=== PATIENT | female | born 1975 | race American Indian/Alaskan Native ===

== ENCOUNTER 2019-09-13 09:26 | Day surgery (SDC) | payer BC, OTHER ==
--- NOTE | 2019-09-12 11:17 | Short Stay Summary ---
Short Stay Documentation Date of service: 09/13/19 - History H&P: obtained from office - Allergies and Medications Current Medications: Allergies codeine Allergy (Verified 06/11/15 22:27) Hives Home Medications Medication Instructions Recorded Confirmed Last Taken Type Ferrous Sulfate [Ferrous Sulfate 324 mg PO DAILY 09/07/19 09/07/19 Unknown History 324 MG] Active Medications Acetaminophen (Tylenol) 1,000 mg PO PREOP ONE Stop: 09/13/19 06:01 Celecoxib (Celebrex) 200 mg PO PREOP NR Gabapentin (Gabapentin) 300 mg PO PREOP NR Sodium Chloride (Nacl 0.9% 1000 Ml) 1,000 mls @ 75 mls/hr IV DIRECT MALISSA Cefazolin Sodium (Ancef/Sterile Water 2 Gm/20 Ml) 2 gm in 20 mls @ 80 mls/hr IV PREOP NR; Protocol - Physical exam General appearance: no acute distress Integumentary: other (small shoulder mass is unchanged) HEENT: Atraumatic Lungs: Normal air movement Neurological: Normal speech - Brief post op/procedure progress note Date of procedure: 09/13/19 (dictation:[id number]) Pre-op diagnosis: left shoulder soft tissue mass Post-op diagnosis: same Procedure: Excision of left shoulder soft tissue mass IVF 300cc EBL min Anesthesia: MAC Findings: 2x2x1.2cm soft lipomatous mass. surrounding tissue normal Surgeon: HALLE MYERS Estimated blood loss: minimal Pathology: list (soft tissue mass) Specimen disposition: to lab Condition: stable - Hospital course Hospital course: uneventful - Disposition Condition at discharge: Stable Disposition: [id number] TO HOME OR SELFCARE Short Stay Discharge Plan Activity: advance as tolerated Diet: regular Wound: open to air, keep clean and dry Special Instructions: no heavy lifting Additional Instructions: Post Operative Instructions Activity: no heavy lifting for next 1 week. May shower tomorrow. Pat dry the wound or wounds. Keep incision sites clean and dry After surgery, start with a light diet. Consider starting with liquids. If you do well, you can advance to a regular diet as you feel comfortable. Apply an ice pack to the wound or wounds for 10-20 minutes at a time. Do this at least 4-5 times a day. You can do it more if he would like. Pain Medication Schedule for the first 2 days after surgery: Gabapentin 300mg twice a day Celebrex (celecoxib) 200mg twice a day Tylenol 500mg four times a day (every 6 hours) After the first 2 days, then take alternating doses of ibuprofen and Tylenol as needed for pain. Take 600 mg of ibuprofen every 6 hours as needed. Take 500 mg of Tylenol every 6 hours as needed. You should alternate these 2 medicines. Make sure you take the ibuprofen with food. It is very important that you use the prescription narcotic pain medicine (hydrocodone) only for very severe pain. Do not take the narcotic medicine before you try using all the medications listed above. We will call you in a couple of days to see how youre doing. If you have any questions or concerns, always feel free to call the clinic ([phone]) at any time. Follow up with: PRIMARY [facility] [Referring] - 7 Days HALLE MYERS MD [Staff Physician] - 14 Days Prescriptions: Celecoxib [celeBREX] 200 mg PO BID #4 capsule Gabapentin 300 mg PO BID #4 capsule HYDROcodone/APAP 5-325 [[place] 5/325] 1 each PO Q6HR PRN #10 tablet PRN Reason: Pain , Severe (7-10)
[~2019-09-13 09:26] MED LIST: ACETAMINOPHEN 500 MG TAB PO ONE; BUPIVACAINE/PF (0.5%) 5 MG/1 ML 30 ML VIAL INFILTRATI ONE; CELECOXIB 200 MG CAP PO NR; GABAPENTIN 300 MG CAP PO NR; LACTATED RINGERS 1,000 ML IV SCH; LIDOCAINE (1%) 10 MG/1 ML VIAL 20 ML MDV INFILTRATI ONE; MIDAZOLAM 2 MG/2 ML INJ IV NR; SODIUM CHLORIDE 0.9% 1000 ML 1,000 ML IV SCH; SODIUM CHLORIDE 0.9% IRR 1,000 ML BOTTLE IR ONE; ceFAZolin/Water 2 GM/20 ML 2 GM/20 ML SYRINGE IV NR
--- NOTE | 2019-09-13 10:12 | Anesthesia Consultation ---
Anesthesia Consult and Med Hx Date of service: 09/13/19 - Airway Anesthetic Teeth Evaluation: Good (lower braces, no rubber bands) ROM Head & Neck: Adequate Mental/Hyoid Distance: Adequate Mallampati Class: Class II Intubation Access Assessment: Probably Good - Pulmonary Exam CTA: Yes - Cardiac Exam Cardiac Exam: RRR - Pre-Operative Health Status ASA Pre-Surgery Classification: ASA2 Proposed Anesthetic Plan: MAC - Pulmonary Hx Smoking: No Hx Respiratory Symptoms: No Hx Sleep Apnea: No (YULI PRE SCREEN LOW RISK) - Cardiovascular System Hx Hypertension: No (resolved after gastric bypass; off meds x10yrs) Hx Heart Attack/AMI: No Hx Percutaneous Transluminal Coronary Angioplasty (PTCA): No - Central Nervous System CVA: No - Gastrointestinal Hx Gastroesophageal Reflux Disease: No - Endocrine Hx Renal Disease: No Hx Liver Disease: No Hx Insulin Dependent Diabetes: No Hx Non-Insulin Dependent Diabetes: No Hx Thyroid Disease: No - Hematic Hx Anemia: Yes - Other Systems Hx Obesity: No (s/p gastric bypass ~20yrs ago) - Additional Comments Anesthesia Medical History Comments: No hx anesthetic complications.
[2019-09-13] MEDS ORDERED: fentaNYL 100 MCG/2 ML INJ IV PRN (10:14)
--- NOTE | 2019-09-13 10:14 | Anesthesia Day of Surgery ---
Anesthesia Day of Surgery - Day of Surgery Patient Examined: Yes Patient H&P Reviewed: Yes Patient is NPO: Yes
[2019-09-13] MEDS ORDERED: ACETAMINOPHEN 500 MG TAB ONE (10:34)
[2019-09-13] MEDS ORDERED: HYDROmorphone 1 MG/1 ML INJ ONE (10:47)
[2019-09-13] MEDS ORDERED: MIDAZOLAM 2 MG/2 ML INJ ONE (10:47)
[2019-09-13] MEDS ORDERED: propofoL 200 MG/20 ML VIAL IV ONE (10:48)
[2019-09-13] MEDS ORDERED: LIDOCAINE MPF (2%) 20 MG/1 ML VIAL 5 ML ONE (10:49)
[2019-09-13] MEDS ORDERED: BUPIVACAINE/PF (0.5%) 5 MG/1 ML 30 ML VIAL INFILTRATI ONE ×2 (10:51→11:45)
[2019-09-13] MEDS ORDERED: LIDOCAINE (1%) 10 MG/1 ML VIAL 20 ML MDV ONE (10:51)
[2019-09-13 11:10] LABS: Hematocrit 35.1 % (30.3-42.9); Hemoglobin 11.1 gm/dl (10.1-14.3)
[2019-09-13] MEDS ORDERED: SODIUM CHLORIDE 0.9% IRR 1,000 ML BOTTLE IR ONE (11:42)
[2019-09-13] MEDS ORDERED: LIDOCAINE (1%) 10 MG/1 ML VIAL 20 ML MDV INFILTRATI ONE (11:45)
[2019-09-13] MEDS: hydrALAZINE 20 MG/1 ML INJ IV PRN ×2 (12:39→12:49)
[2019-09-13 13:03] VITALS: BP 134/85
--- NOTE | 2019-09-13 13:29 | Operative Report ---
PREOPERATIVE DIAGNOSIS: Left shoulder soft tissue mass. POSTOPERATIVE DIAGNOSIS: Left shoulder soft tissue mass. PROCEDURE: Excision of left shoulder soft tissue mass. ATTENDING PHYSICIAN: Smooth Larios MD ANESTHESIA: Local MAC. INTRAVENOUS FLUIDS: 300 mL. BLOOD LOSS: Minimal. FINDINGS: Lipomatous mass that was 2 x 2 x 1.2 cm. There was no evidence of any abnormal tissue or structures in the periphery. Everything else looked normal. SPECIMENS: The above listed mass. DRAINS: None. COMPLICATIONS: None. DISPOSITION: Stable, transferred to Recovery Room. INDICATIONS: This is a 44-year-old female who reports that a few months ago she began having a lot of neck and shoulder pain during attempts at massage in that area. She identified a mass in the left shoulder. She believes that it has been contributing to the pain and has been growing. The patient is assessed to be in need for excision. Procedure, risks, benefits were explained to the patient. Risks include but were not limited to infection, bleeding, pain, injury to surrounding structures, possible need for further procedures in the future. Also emphasized that I think the pain that she is having in her neck and shoulders are muscular in origin. I do not believe that the mass that we are planning to remove will help relieve the pain. I want to make sure she understood that these are two separate things and not to have the expectation with a disappointment that she continues to have pain in her neck and shoulders despite the removal of the mass. The patient understood and consented. OPERATIVE NOTE: The patient was brought to the operating room and placed on the table in supine position. After adequate sedation was established, the patient was prepped and draped in usual sterile fashion. Pressure points had been padded. Folded-up sheath was placed underneath the left shoulder to elevate. SCDs were in place. Antibiotics have been given. Time-out was called. Identifying the lines of skin tension, I marked out. Along one of the lines, I was along the center of the mass. Local was injected just in that area, so that I would be able to clearly identify the mass underneath in case it was deep. Skin was sharply incised. Dissection was carried down to the mass. The mass was dissected out from the surrounding tissue. It appeared to be a lipomatous mass. I checked multiple times in the surrounding area to make sure there was nothing left. It appeared as though the mass that we had identified in the office and in the holding area was what I dissected out. I thought the fat tissue in the periphery was essentially normal, so I did not excise out any more than a small rim around the lipomatous mass. The underlying tissue was completely normal. Specimen was marked with silk suture, double tailed stitch was on the deep surface, long stitch was on the lateral surface. Hemostasis was achieved with electrocautery. Additional local was injected, 3-0 Vicryl was used to close the deep layer with interrupted sutures. Skin was closed with a running 4-0 Monocryl subcuticular stitch. Skin was cleaned and dried. Dermabond was placed. The patient tolerated the procedure well. There were no complications. All counts were correct at the end of the case. JOB# [id number] CASS/MORRO
--- NOTE | 2019-09-13 16:42 | Post Anesthesia Evaluation ---
- Post Anesthesia Evaluation Patient Participated: Yes Airway Patent: Yes Stable Respiratory Function: Yes Nausea/Vomiting: No Temp > 96.8F: Yes Pain Manageable: Yes Adequeate Hydration: Yes Anesthesia Complications: No
== END 2019-09-13 13:39 | disposition home or self-care (01) ==
LOC: OR 09:26
PROVIDERS: ATTEND Surgery
DX: R22.32 Localized swelling, mass and lump, left upper limb (principal); D17.22 Benign lipomatous neoplasm of skin and subcutaneous tissue of left arm; D64.9 Anemia, unspecified; Z79.899 Other long term (current) drug therapy; Z88.5 Allergy status to narcotic agent; Z90.710 Acquired absence of both cervix and uterus
CPT/HCPCS: 23075; 36415; 85014; 85018; 88304; J0360; J0690; J1170; J2250; J2704; J7120; 88307